=== PATIENT | female | born 1985 | race Caucasian/White ===

== ENCOUNTER → 2018-08-30 | Outpatient (CLI) | payer OTHER | END | disposition home or self-care (01) | LOC: LAB EV 17:05 → LAB SHORT 17:05 | DX: R31.9 Hematuria, unspecified (principal) | CPT/HCPCS: 87086 ==

== ENCOUNTER 2018-11-11 14:06 | Day surgery (SDC) | payer OTHER ==
[~2018-11-11] VITALS: Ht 170.2 cm; Wt 65.4 kg
[2018-11-11] MEDS ORDERED: LAMO100 PO (14:42)
[2018-11-11] MEDS ORDERED: Norco 5-325 Ta1 EACH PO (14:42)
--- NOTE | 2018-11-11 17:12 | NUR ---
11/11/18 171 Mouna Cole S ABLE TO FEEL TOUCH TO ALL TOES ON LEFT FOOT BUT BIG TOE NUMB.
--- NOTE | 2018-11-11 17:50 | NUR ---
11/11/18 1750 Mouna Cole PT. DRINKING WATER & ATE SOME CRACKERS TO TAKE A PAIN PILL. AT SIDE. CALL LIGHT WITHIN REACH.
== END 2018-11-11 18:28 | disposition home or self-care (01) ==
LOC: ORSCSDS 14:06
PROVIDERS: Podiatrist Foot & Ankle Surgery
PROC: 0QSK04Z Reposition Left Fibula with Internal Fixation Device, Open Approach (ICD-10-PCS; principal; 2018-11-11 15:30)
PROC: 0QSH04Z Reposition Left Tibia with Internal Fixation Device, Open Approach (ICD-10-PCS; principal; 2018-11-11 15:30)
DX: S82.842A Displaced bimalleolar fracture of left lower leg, initial encounter for closed fracture (principal); F17.210 Nicotine dependence, cigarettes, uncomplicated
CPT/HCPCS: C1713; J1100; J2250; J2405; J2704; J3010; J7120

== ENCOUNTER → 2019-01-07 | Outpatient (CLI) | payer OTHER ==
[~2019-01-07] MED LIST: LAMO100 PO; Norco 5-325 Ta1 EACH PO
[2019-01-09 15:07] LABS: HPV 16 Negative (Negative); HPV 18 Negative (Negative); HPV OTHER HR TYPES Negative (Negative)
== END | disposition home or self-care (01) ==
LOC: LAB 19:07 → LAB SHORT 19:07
PROVIDERS: Physician Assistant
DX: Z01.419 Encounter for gynecological examination (general) (routine) without abnormal findings (principal)
CPT/HCPCS: 87624; G0145

== ENCOUNTER 2019-11-19 22:12 | Inpatient (IN) | payer OTHER ==
[~2019-11-19] VITALS: Ht 160 cm; Wt 62.9 kg
[2019-11-19 22:30] LABS: PCO2 Arterial 30.3 mmHg (35-45); PO2 Arterial >500 mmHg (80-100); pH Blood Arterial 7.48 (7.35-7.45)
[2019-11-19 22:38] LABS: BASOPHILS ABSOLUTE AUTO 0.09 K/mm3 (0.00-0.23); BASOPHILS PERCENT AUTO 2 % (0-2); EOSINOPHILS ABSOLUTE AUTO 0.04 K/mm3 (0.00-0.68); EOSINOPHILS PERCENT AUTO 1 % (0-6); Hematocrit 39.5 % (33.0-51.0); Hemoglobin 13.9 g/dL (11.5-16.0); IMMATURE GRAN ABSOLUTE AUTO 0.01 K/mm3 (0.00-0.10); IMMATURE GRAN PERCENT AUTO 0 % (0-1); LYMPHOCYTES ABSOLUTE AUTO 1.48 K/mm3 (0.84-5.20); LYMPHOCYTES PERCENT AUTO 26 % (21-46); MONOCYTES ABSOLUTE AUTO 0.56 K/mm3 (0.16-1.47); MONOCYTES PERCENT AUTO 10 % (4-13); Mean Corpuscular HGB 35.2 pg (26.0-34.0); Mean Corpuscular HGB Conc 35.2 g/dL (31.5-36.5); Mean Corpuscular Volume 100 fL (80-100); Mean Platelet Volume 10.8 fL (9.1-12.4); NEUTROPHILS ABSOLUTE AUTO 3.44 K/mm3 (1.96-9.15); NEUTROPHILS PERCENT AUTO 61 % (41-73); Platelet Count 198 K/mm3 (150-400); RDW Coefficient Variation 12.1 % (11.7-14.2); RDW Standard Deviation 45.4 fL (35.1-46.3); Red Blood Cell Count 3.95 M/mm3 (3.80-5.20); White Blood Cell Count 5.62 K/mm3 (4.00-11.30)
[2019-11-19 23:08] LABS: Ethanol (Alcohol), Blood, Med 240 mg/dL; Salicylate 3.5 mg/dL (2.8-20.0)
[2019-11-19 23:09] LABS: Acetaminophen, Random <2.0 ug/mL (10.0-30.0)
[2019-11-19 23:11] LABS: Alanine Aminotransfer (ALT/SGP 78 U/L (12-78); Albumin, Blood 4.3 g/dL (3.4-5.0); Albumin/Globulin Ratio 1.3 (0.8-1.8); Alk Phos 65 U/L (50-136); Anion Gap 12 mmol/L (6-16); Aspartate Aminotrans (AST/SGOT 51 U/L (12-37); Bilirubin, Total 0.3 mg/dL (0.1-1.0); Blood Urea Nitrogen 12 mg/dL (8-24); Bun/Creatinine Ratio 12.2 (12.0-20.0); CO2, Blood 22 mmol/L (21-32); Calcium, Blood 8.5 mg/dL (8.5-10.1); Chloride, Blood 105 mmol/L (98-108); Creatinine, Blood 0.99 mg/dL (0.40-1.00); Globulin, Blood 3.4 g/dL (2.2-4.0); Glomerular Filtration Rate >60 (60-); Glucose, Blood 106 mg/dL (70-99); Potassium, Blood 3.4 mmol/L (3.5-5.5); Sodium, Blood 139 mmol/L (136-145); Total Protein, Blood 7.7 g/dL (6.4-8.2); Troponin I <0.015 ng/mL (0.000-0.040)
[2019-11-19 23:55] LABS: Source, Urine Catheter
[2019-11-19 23:58] LABS: Appearance, Urine Clear (Clear); Bilirubin, Urine Neg (Neg); Blood, Urine 1+ (Neg); Color, Urine Yellow (P-Yellow); Glucose Qualitative, Urine Neg (Neg); Ketones, Urine 1+ (Neg); Leukocyte Esterase, Urine Neg (Neg); Nitrite, Urine Neg (Neg); Protein, Urine 2+ (Neg); Specific Gravity, Urine 1.025 (1.003-1.022); Urobilinogen, Urine NORM (Normal)
--- NOTE | 2019-11-20 | NUR ---
PT UP TO ICU 9 FROM ED VIA M[facility] D/T OD ON LAMICTAL. PT INTUBATED AND SEDATED. LUNG SOUNDS CLEAR. VSS. VENT SETTINGS ARE 14/400/5/30%. SPO2 >90%. 2 PIVS IN RFA AND LAC. LEVIN IN PLACE DRAINING SMALL AMTS OF DARK YELLOW URINE. OG TUBE IN PLACE. PROPOFOL INF AT 35MCG. POISON CONTROL NOTIFIED. RECOMMENDED TO WATCH FOR PROLONGED Q-T AND SEROTONIN SYNDROME. WILL CONTINUE TO MONITOR
[2019-11-20 00:06] LABS: Bacteria Not Seen /hpf; Red Blood Cells, Urine 0-2 /hpf (0-2); Squamous Epithelial Cells Not Seen /hpf (Few); White Blood Cells, Urine Not Seen /hpf (0-5)
[2019-11-20 00:17] LABS: U Amphetamine Screen Not Detected; U Barbituate Screen Not Detected; U Benzodiazapine Screen Not Detected; U Buprenorphine Screen Not Detected; U Cannabinoids Screen Not Detected; U Cocaine Screen Not Detected; U Methadone Screen Not Detected; U Methamphetamine Screen Not Detected; U Opiates Screen Not Detected; U Oxycodone Screen Not Detected; U Phencyclidine Screen Not Detected; U Propoxyphene Screen Not Detected
--- NOTE | 2019-11-20 00:30 | NUR ---
DURING ORAL CARE PT BEGAN GAGGING AND PULLING/FIGHTING RESTRAINTS, SITTING UP IN BED. PRN ATIVAN GIVEN WITH GOOD EFFECT. PT CURRENTLY SLEEPING AND IS CALM. WILL CONTINUE TO MONITOR
[2019-11-20 02:17] LABS: BASOPHILS ABSOLUTE AUTO 0.06 K/mm3 (0.00-0.23); BASOPHILS PERCENT AUTO 1 % (0-2); EOSINOPHILS ABSOLUTE AUTO 0.02 K/mm3 (0.00-0.68); EOSINOPHILS PERCENT AUTO 0 % (0-6); Hematocrit 38.7 % (33.0-51.0); IMMATURE GRAN ABSOLUTE AUTO 0.01 K/mm3 (0.00-0.10); IMMATURE GRAN PERCENT AUTO 0 % (0-1); LYMPHOCYTES ABSOLUTE AUTO 1.06 K/mm3 (0.84-5.20); LYMPHOCYTES PERCENT AUTO 16 % (21-46); MONOCYTES PERCENT AUTO 10 % (4-13); Mean Corpuscular HGB 34.6 pg (26.0-34.0); Mean Corpuscular HGB Conc 33.6 g/dL (31.5-36.5); Mean Platelet Volume 11.1 fL (9.1-12.4); NEUTROPHILS ABSOLUTE AUTO 4.95 K/mm3 (1.96-9.15); NEUTROPHILS PERCENT AUTO 73 % (41-73); Platelet Count 165 K/mm3 (150-400); RDW Coefficient Variation 12.4 % (11.7-14.2); RDW Standard Deviation 47.7 fL (35.1-46.3); Red Blood Cell Count 3.76 M/mm3 (3.80-5.20)
[2019-11-20 02:21] LABS: Mean Corpuscular Volume 103 fL (80-100)
[2019-11-20 02:35] LABS: Alanine Aminotransfer (ALT/SGP 71 U/L (12-78); Albumin, Blood 3.9 g/dL (3.4-5.0); Albumin/Globulin Ratio 1.2 (0.8-1.8); Alk Phos 58 U/L (50-136); Anion Gap 11 mmol/L (6-16); Aspartate Aminotrans (AST/SGOT 51 U/L (12-37); Bilirubin, Direct 0.1 mg/dL (0.0-0.3); Bilirubin, Indirect 0.3 mg/dL (0.1-0.7); Bilirubin, Total 0.4 mg/dL (0.1-1.0); Blood Urea Nitrogen 12 mg/dL (8-24); Bun/Creatinine Ratio 14.2 (12.0-20.0); CO2, Blood 22 mmol/L (21-32); Chloride, Blood 108 mmol/L (98-108); Creatinine, Blood 0.84 mg/dL (0.40-1.00); Globulin, Blood 3.3 g/dL (2.2-4.0); Glomerular Filtration Rate >60 (60-); Glucose, Blood 102 mg/dL (70-99); Potassium, Blood 3.5 mmol/L (3.5-5.5); Salicylate 2.4 mg/dL (2.8-20.0); Sodium, Blood 141 mmol/L (136-145); Total Protein, Blood 7.2 g/dL (6.4-8.2)
[2019-11-20 05:40] LABS: PCO2 Arterial 41.3 mmHg (35-45); PO2 Arterial 132 mmHg (80-100); pH Blood Arterial 7.39 (7.35-7.45)
--- NOTE | 2019-11-20 06:14 | NUR ---
NO ACUTE CHANGES T/O SHIFT. PT OCCASIONALLY WAKING UP. FOLLOWING COMMANDS. IS CALM AND COOPERATIVE. ASKED IF SHE WAS COMFORTABLE AND SHE NODDED HER HEAD YES. VERY LITTLE URINE OUTPUT DURING THE NIGHT. VENT SETTINGS 14/400/5/30%. SPO2 >90%. PROPOFOL DOWN TO 35MCG. WILL PASS REPORT TO ONCOMING SHIFT
--- NOTE | 2019-11-20 07:30 | NUR ---
ASSUMED CARE: PT RESTING QUIETLY IN BED AT THIS TIME. PROPOFOL AT 35 MCG/KG/MIN. VENT SETTINGS AC 14/400/5/30%. NS RUNNING WELL. BILATERAL WRIST RESTRAINS. LEVIN CATHETER IN PLACE WITH CLEAR YELLOW URINE. NETWORK DESIGN ARCHITECT REPORTS SMALL AMOUNTS. NO ACUTE NEEDS OR CONCERNS AT THIS TIME.
--- NOTE | 2019-11-20 09:10 | NUR ---
DR LEARY CAME IN TO SEE PT AND REVIEWED CHART. ORDERS TO EXTUBATE. DR INSTRUCTED TO GIVE 2 MG ATIVAN PRIOR TO EXTUBATION TO HELP PT REMAIN CALM. EXTUBATION COMPLETE AT 0835. PT DROWSY BUT EASILY ROUSEABLE. ANSWERS QUESTIONS APPROPRIATELY. WHEN ASKED IF SHE HAD THOUGHTS OF HARMING HERSELF SHE DENIED. SHE STATES SHE IS IN THE HOSPITAL BECAUSE SHE TOOK PILLS. SHE STATES SHE WAS NOT TRYING TO KILL HERSELF WHEN SHE TOOK THE PILLS. WHEN ASKED WHY SHE TOOK THEM SHE STATES SHE WAS TRYING TO GET RID OF THEM. FATHER NOEMI HAS BEEN GIVEN UPDATE. ALLOWING PT TO WAKE FURTHER AND WILL CALL DR MARRERO FOR FURTHER ORDERS.
--- NOTE | 2019-11-20 10:08 | NUR ---
PT WAKING EASIER. STARTLES WHEN WAKES AND AGITATED UNTIL SHE REALIZES WHERE SHE IS. SHE STATES SHE IS IN THE HOSPITAL AND SHE IS HERE BECAUSE SHE TOOK TOO MANY PILLS BUT NOW STATES SHE DOES NOT KNOW WHY SHE TOOK THEM. PAGE OUT TO DR MARRERO TO UPDATE ON PT.
--- NOTE | 2019-11-20 10:24 | NUR ---
SPOKE WITH DR MARRERO WHO AGREED TO CONSULT DR BLACK. CONSULT SCANNED TO ED AND CALLED THEM TO BE AWARE THAT CONSULT IS COMING. RESTRAINTS STILL IN PLACE DUE TO PT ATTEMPTING TO PULL OUT LEVIN AND TRIED TO GET OUT OF BED MULTIPLE TIMES.
--- NOTE | 2019-11-20 11:59 | NUR ---
PT'S PUPILS REMAIN UNCHANGED, BOWEL TONES HYPOACTIVE, URINE OUTPUT IMPROVED SINCE AM. BEADED SWEAT TO FOREHEAD NOTED. CONFUSION, STARTLES AWAKE, ATTMEPTS TO GET OUT OF BED WHEN ROUSED. STATES SHE KNOWS SHE'S IN [facility], THAT SHE "TOOK TOO MANY PILLS," BUT STATES SHE DOES NOT KNOW WHY SHE TOOK THEM.
--- NOTE | 2019-11-20 12:15 | NUR ---
DR MARRERO CAME TO SEE PT. AWARE OF SYMPTOMS PT IS HAVING AT THIS TIME INCLUDING CONFUSION, AGITATION, AND SWEATING. ALSO AWARE THAT PT HAD ELEVATED BLOOD ALCOHOL LEVEL UPON ARRIVAL. AWAITING DR BLACK CONSULT. PT REMAINS DROWSY BUT EASILY ROUSABLE BUT AGITATED, CONTINUES TO TRY TO SIT UP IN BED AND SWINGS LEGS AROUND.
--- NOTE | 2019-11-20 18:49 | NUR ---
SHIFT SUMMARY: PT REMAINS DROWSY BUT EASILY ROUSABLE. WILL LIFT TORSO AND ATTEMPT TO GET OUT OF BED OCCASIONALLY. BILATERAL WRIST RESTRAINTS IN PLACE. AWAITING DR BLACK CONSULT TO DETERMINE DISCHARGE RECOMMENDATIONS. NO FURTHER ELEVATED TEMPS NOTED BUT SWEATING SEEN. PT REPOSITIONS SELF FREQUENTLY. NO FURTHER NEEDS OR CONCERNS AT THIS TIME.
--- NOTE | 2019-11-20 20:00 | NUR ---
ASSUMPTION OF CARE: PT EXTUBATED DURING DAYSHIFT. PROPOFOL IS OFF BUT PT REMAINS DROWSY. WILL WAKE TO VERBAL STIMULI. WHEN PT OPENS HER EYES THERE IS SOME NYSTAGMUS. IN SR, VSS. LUNG SOUNDS ARE CLEAR, SPO2 >90% ON RA. LEVIN IN REMAINS IN PLACE DRAINING MOD AMT OF DARKISH YELLOW URINE. SKIN IS C/D/I AND PT IS ABLE TO REPOSITION SELF FOR COMFORT. [address] NS INFUSING AT 100MLS/HR.
[2019-11-21 03:47] LABS: BASOPHILS ABSOLUTE AUTO 0.05 K/mm3 (0.00-0.23); BASOPHILS PERCENT AUTO 0 % (0-2); EOSINOPHILS ABSOLUTE AUTO 0.04 K/mm3 (0.00-0.68); EOSINOPHILS PERCENT AUTO 0 % (0-6); Hematocrit 37.5 % (33.0-51.0); Hemoglobin 12.4 g/dL (11.5-16.0); IMMATURE GRAN ABSOLUTE AUTO 0.04 K/mm3 (0.00-0.10); IMMATURE GRAN PERCENT AUTO 0 % (0-1); LYMPHOCYTES ABSOLUTE AUTO 1.11 K/mm3 (0.84-5.20); LYMPHOCYTES PERCENT AUTO 10 % (21-46); MONOCYTES ABSOLUTE AUTO 0.87 K/mm3 (0.16-1.47); MONOCYTES PERCENT AUTO 8 % (4-13); Mean Corpuscular HGB 34.8 pg (26.0-34.0); Mean Corpuscular HGB Conc 33.1 g/dL (31.5-36.5); Mean Corpuscular Volume 105 fL (80-100); Mean Platelet Volume 11.7 fL (9.1-12.4); NEUTROPHILS ABSOLUTE AUTO 9.22 K/mm3 (1.96-9.15); NEUTROPHILS PERCENT AUTO 81 % (41-73); Platelet Count 118 K/mm3 (150-400); RDW Coefficient Variation 12.4 % (11.7-14.2); RDW Standard Deviation 48.7 fL (35.1-46.3); Red Blood Cell Count 3.56 M/mm3 (3.80-5.20); White Blood Cell Count 11.33 K/mm3 (4.00-11.30)
[2019-11-21 04:07] LABS: Alanine Aminotransfer (ALT/SGP 58 U/L (12-78); Albumin, Blood 3.6 g/dL (3.4-5.0); Albumin/Globulin Ratio 1.1 (0.8-1.8); Alk Phos 60 U/L (50-136); Anion Gap 8 mmol/L (6-16); Aspartate Aminotrans (AST/SGOT 31 U/L (12-37); Bilirubin, Total 1.2 mg/dL (0.1-1.0); Blood Urea Nitrogen 11 mg/dL (8-24); Bun/Creatinine Ratio 12.7 (12.0-20.0); CO2, Blood 24 mmol/L (21-32); Calcium, Blood 8.5 mg/dL (8.5-10.1); Chloride, Blood 105 mmol/L (98-108); Creatinine, Blood 0.87 mg/dL (0.40-1.00); Globulin, Blood 3.2 g/dL (2.2-4.0); Glomerular Filtration Rate >60 (60-); Glucose, Blood 72 mg/dL (70-99); Phosphorus, Blood 2.7 mg/dL (2.5-4.9); Potassium, Blood 3.8 mmol/L (3.5-5.5); Sodium, Blood 137 mmol/L (136-145); Total Protein, Blood 6.8 g/dL (6.4-8.2)
--- NOTE | 2019-11-21 06:17 | NUR ---
SHIFT SUMMARY: NO ACUTE CHANGES T/O SHIFT. VS REMAIN STABLE. PT HAD A FEW MOMENTS OF AGITATION REGARDING THE LEVIN CATH SHE WOULD LIKE IT REMOVED. PT WAS ABLE TO TAKE PO LIQUIDS WITH ZERO DIFFICULTY. RESTRAINTS OFF AND PT WAS ABLE TO FOLLOW DIRECTIONS AND COMMANDS AND STAYED IN BED. USED CALL LIGHT APPROPRIATELY. WILL PASS REPORT TO ONCOMING SHIFT.
--- NOTE | 2019-11-21 08:13 | NUR ---
CIVIL RIGHTS READ TO PT. PT DECLINES ELECTRONICS RESEARCH ENGINEER. FORMS SIGNED AND PLACED ON CHART.
--- NOTE | 2019-11-21 09:00 | NUR ---
BEGINNING OF SHIFT Assumed care of pt at 0700. Report received from Cornelio CHACON. Pt sleeping but awakens with gentle verbal stimulus. Pt A&O x 3. Answers questions. Follow commands. Verbalizes needs. Denies suicidality. Pt not in suicide precautions at beginning of shift. This RN reviewed pt's plan of care with Dr Mcgovern and Dr Marcano. Both providers stated for patient to be in moderate-risk suicide precautions with camera monitoring. Providers also stated for pt to be on two MD hold until behavior health can assess patient. Civil rights read by charge nurseFe.
--- NOTE | 2019-11-21 09:30 | NUR ---
DR LEARY IN TO SEE PT States pt can be medical floor status with telemetry.
--- NOTE | 2019-11-21 09:31 | NUR ---
POISON CONTROL CALLED FOR UPDATE. NO RECOMMENDATIONS AT THIS TIME. WILL CALL BACK THIS AFTERNOON TO SEE IF PT HAS BEEN DISCHARGED.
--- NOTE | 2019-11-21 11:00 | NUR ---
BEHAVIORAL HEALTH CONSULT Pt spoke to Smiley Valles. Per Smiley Valles, pt is okay to discharge home from her standpoint. Plan to update Dr Marcano.
--- NOTE | 2019-11-21 12:00 | NUR ---
AGITATION Pt highly agitated after talking to Smiley Valles. Pt agreeable to receiving ativan. Ativan helped pt to calm down.
--- NOTE | 2019-11-21 12:00 | NUR ---
DR MARRERO IN TO SEE PATIENT Provider states that pt is okay will be discharging home today. [address] MD hold dropped by Dr Corrales.
--- NOTE | 2019-11-21 13:00 | NUR ---
SAFETY PLAN Completed by care providerMeera. Placed in pt's chart. Pt has copy.
--- NOTE | 2019-11-21 15:22 | NUR ---
DISCHARGE Pt discharged from unit at 1420. Pt walked to entrance accompanied by this RN. Pt had own medications in posession. This RN and pt met family member outside of hospital. Family member aware that pt has medication in her posession. With permission from pt, this RN updated pt's father- Ken, and mother- Lisa. Lisa was initially uncomfortable with pt being discharged today. Lisa educated on discharge process and plans for pt to follow up with outpatient. Pt's mother verbalized understanding of discharge and was agreeable at end of conversation.
== END 2019-11-21 14:20 | disposition home or self-care (01) | DRG 917 ==
LOC: ER 22:12 → ICUW 22:13 → ER 23:12 → ICUW 23:19
PROVIDERS: Emergency Medicine; Internal Medicine Critical Care Medicine; ADMIT Internal Medicine
PROC: 5A1935Z Respiratory Ventilation, Less than 24 Consecutive Hours (ICD-10-PCS; principal; 2019-11-19)
PROC: 0BH17EZ Insertion of Endotracheal Airway into Trachea, Via Natural or Artificial Opening (ICD-10-PCS; 2019-11-19)
DX: T40.4X2A Poisoning by other synthetic narcotics, intentional self-harm, initial encounter (principal); J96.90 Respiratory failure, unspecified, unspecified whether with hypoxia or hypercapnia; F10.239 Alcohol dependence with withdrawal, unspecified; T43.212A Poisoning by selective serotonin and norepinephrine reuptake inhibitors, intentional self-harm, initial encounter; T42.6X2A Poisoning by other antiepileptic and sedative-hypnotic drugs, intentional self-harm, initial encounter; E87.6 Hypokalemia; F17.210 Nicotine dependence, cigarettes, uncomplicated; F39 Unspecified mood [affective] disorder; F10.229 Alcohol dependence with intoxication, unspecified; Z78.1 Physical restraint status; Z88.0 Allergy status to penicillin
CPT/HCPCS: 31500; 31720; 36415; 36600; 51702; 71045; 80053; 81001; 82248; 82803; 83735; 84100; 84484; 85025; 93005; 93010; 94002; 94003; 96361-59; 96374-59; 96375-59; 99285-25; G0480; J0330; J1650; J2060; J2250; J2405; J2704; J3010; J3411; J3480; J7030

== ENCOUNTER 2020-11-19 00:32 | Inpatient (IN) | payer OTHER ==
[~2020-11-19] VITALS: Ht 170.2 cm; Wt 63.9 kg
[2020-11-19 01:04] LABS: Hematocrit 35.8 % (33.0-51.0); Hemoglobin 12.3 g/dL (11.5-16.0); Mean Corpuscular HGB 33.5 pg (26.0-34.0); Mean Corpuscular HGB Conc 34.4 g/dL (31.5-36.5); Mean Corpuscular Volume 98 fL (80-100); Mean Platelet Volume 10.5 fL (9.1-12.4); Platelet Count 219 K/mm3 (150-400); RDW Coefficient Variation 14.2 % (11.7-14.2); RDW Standard Deviation 51.5 fL (35.1-46.3); Red Blood Cell Count 3.67 M/mm3 (3.80-5.20); White Blood Cell Count 11.42 K/mm3 (4.00-11.30)
[2020-11-19 01:23] LABS: BAND PERCENT MAN 13 % (0-8); BASOPHILS PERCENT MAN 0 % (0-2); EOSINOPHILS ABSOLUTE MAN 0.11 K/mm3 (0.00-0.68); EOSINOPHILS PERCENT MAN 1 % (0-6); LYMPHOCYTES ABSOLUTE MAN 0.68 K/mm3 (0.84-5.20); LYMPHOCYTES PERCENT MAN 6 % (21-46); MONOCYTES ABSOLUTE MAN 0.45 K/mm3 (0.16-1.47); MONOCYTES PERCENT MAN 4 % (4-13); NEUTROPHILS ABSOLUTE MAN 10.16 K/mm3 (1.96-9.15); SEG NEUTROPHILS PERCENT MAN 76 % (41-73); TOTAL CELLS COUNTED 100
[2020-11-19 01:24] LABS: Alanine Aminotransfer (ALT/SGP 51 U/L (12-78); Albumin, Blood 3.6 g/dL (3.4-5.0); Albumin/Globulin Ratio 1.1 (0.8-1.8); Alk Phos 61 U/L (50-136); Anion Gap 11 mmol/L (6-16); Aspartate Aminotrans (AST/SGOT 38 U/L (12-37); Bilirubin, Total 0.5 mg/dL (0.1-1.0); Blood Urea Nitrogen 23 mg/dL (8-24); Bun/Creatinine Ratio 26.9 (12.0-20.0); CO2, Blood 23 mmol/L (21-32); Calcium, Blood 8.7 mg/dL (8.5-10.1); Chloride, Blood 104 mmol/L (98-108); Creatinine, Blood 0.86 mg/dL (0.40-1.00); Globulin, Blood 3.3 g/dL (2.2-4.0); Glomerular Filtration Rate >60 (60-); Glucose, Blood 136 mg/dL (70-99); Potassium, Blood 3.6 mmol/L (3.5-5.5); Sodium, Blood 138 mmol/L (136-145); Total Protein, Blood 6.9 g/dL (6.4-8.2)
[2020-11-19] MEDS ORDERED: Amphetamine Sal30 MG PO (03:45)
[2020-11-19] MEDS ORDERED: IBUP800 PO (03:46)
[2020-11-19 04:39] LABS: SARS-Cov-2 (COVID-19) PCR, MMC NEGATIVE (NEGATIVE)
--- NOTE | 2020-11-19 05:40 | NUR ---
11/19/20 0540 Edu Fay EPI 0.15MG ADDED TO 30CC OF 0.5 BUPIVACAINE
--- NOTE | 2020-11-19 06:25 | NUR ---
RECOVERY: PT TRANSFERRED TO ICU 2 VIA ER GENA WITH RN AND MD AT BEDSIDE. PT SEDATE AND SLEEPING. LS CLEAR T/O WITH BIOX 100% ON 15L NRB. HEART SOUNDS S1 AND S2 AUSCULTATED WITH MONITOR SHOWING NSR WITH HR 87. SKIN PINK, WARM AND DRY. BONIFACIO RUQ WITH SEROSANG FLUID DRAINED. MIDLINE EMMA'S DRAIN ON AND WORKING. ABD SOFT, TENDER AND PT GUARDING. 18G IV L AC WITH LR TO SLOW GRAVITY. LEVIN DRAINING CLEAR YELLOW URINE. 0635: O2 REMOVED. PT RESPOSIVE, BUT DRIFTS BACK TO SLEEP. 0645: DR. AYALA CAME THROUGH TO CHECK ON PT AND WAS TOLD THAT PT WOULD GO TO [facility].
--- NOTE | 2020-11-19 09:08 | NUR ---
0755 ARRIVED TO ROOM, PT AWAKENS TO VERBAL STIMULI, RETURNS TO SLEEP MIDWAY THROUGH ANSWERING QUESTIONS. DIE ENGRAVER NOT INITIATED AT THIS TIME DUE TO PTS SLEEPINESS
--- NOTE | 2020-11-19 15:14 | NUR ---
1450 PT AWAKE, REPORTS ABD PAIN LEVEL 7-8. COLLECTIONS ASSISTANT INITIATED PER ORDERS AND PT INSTRUCTED IN USE OF COLLECTIONS ASSISTANT. PT RETURNS TO SLEEP AFTER COLLECTIONS ASSISTANT LOADING DOSE. PT OPENS EYES TO VERBAL STIMULI. DR AYALA HERE TO SEE PATIENT
--- NOTE | 2020-11-19 15:20 | NUR ---
DISCONTINUED CONTINUOUS RATE ON STERILIZER OPERATOR
--- NOTE | 2020-11-19 16:55 | NUR ---
summary PT SLEEPS WHEN UNDISTURBED, AWAKENS TO VERBAL STIMULI AND AT TIMES RETURNS TO SLEEP MID SENTENCE. ABD DRESSING WITH MIDLINE EMMA, 2" AREA SEROSANGUINOUS DRAINAGE ON LOWER EDGE EMMA DRESSING. PT TO SOMNOLENT AT THIS TIME TO COMPLETE IS TEACHING.
--- NOTE | 2020-11-19 17:39 | NUR ---
THIS NURSE TOOK OVER CARE AT THIS TIME. PATIENT IS CURRENTLY LAYING IN BED ASLEEP WITH EQUAL/EVEN RESP. CALL LIGHT IS WITHIN REACH.
[2020-11-20 04:29] LABS: Hematocrit 36.5 % (33.0-51.0); Hemoglobin 12.1 g/dL (11.5-16.0); Mean Corpuscular HGB 33.2 pg (26.0-34.0); Mean Corpuscular HGB Conc 33.2 g/dL (31.5-36.5); Mean Corpuscular Volume 100 fL (80-100); Mean Platelet Volume 11.3 fL (9.1-12.4); Platelet Count 162 K/mm3 (150-400); RDW Coefficient Variation 14.6 % (11.7-14.2); RDW Standard Deviation 54.4 fL (35.1-46.3); Red Blood Cell Count 3.64 M/mm3 (3.80-5.20); White Blood Cell Count 8.38 K/mm3 (4.00-11.30)
[2020-11-20 04:50] LABS: BAND PERCENT MAN 7 % (0-8); BASOPHILS PERCENT MAN 0 % (0-2); EOSINOPHILS PERCENT MAN 0 % (0-6); LYMPHOCYTES ABSOLUTE MAN 0.83 K/mm3 (0.84-5.20); LYMPHOCYTES PERCENT MAN 10 % (21-46); MONOCYTES PERCENT MAN 6 % (4-13); NEUTROPHILS ABSOLUTE MAN 7.03 K/mm3 (1.96-9.15); SEG NEUTROPHILS PERCENT MAN 77 % (41-73); TOTAL CELLS COUNTED 100
[2020-11-20 04:52] LABS: Anion Gap 4 mmol/L (6-16); Blood Urea Nitrogen 16 mg/dL (8-24); CO2, Blood 28 mmol/L (21-32); Calcium, Blood 8.8 mg/dL (8.5-10.1); Chloride, Blood 108 mmol/L (98-108); Creatinine, Blood 0.94 mg/dL (0.40-1.00); Glomerular Filtration Rate >60 (60-); Glucose, Blood 122 mg/dL (70-99); Potassium, Blood 3.9 mmol/L (3.5-5.5); Sodium, Blood 140 mmol/L (136-145)
--- NOTE | 2020-11-20 06:21 | NUR ---
SHIFT SUMMARY NO ACUTE CHANGES OVERNIGHT. PT AOX4. REPORTS PAIN, PAIN MANAGED WITH PIGS FEET CLEANER FENTANYL. MIDLINE EMMA INTACT/SUCTIONING WITH MED DRY DRAINAGE, REMAIN UNCHANGED OVERNIGHT. PT SLEPT T/O SHIFT. LEVIN CATH INTACT/ON FLOOR/GRAVITIY AND PATENT. BONIFACIO DRAIN DRAINING SS. IV ON L AC INFUSING WITH LR 100ML/HR. ABX ADMINISTERED. NG TUBE IN PLACED AND INTACT IN LIS. CALL LIGHT WITHIN REACH. WILL PROVIDE REPORT TO ONCOMING NURSE.
--- NOTE | 2020-11-20 07:15 | NUR ---
AWNING SPREADER Pump cleared at 289mcg; BONIFACIO DRAIN 50ML SS DRAINAGE
--- NOTE | 2020-11-20 09:03 | NUR ---
DROWSY, AWAKENS EASILY, A&OX4, DENIES ANY NAUSEA, STATES PAIN IS "OK" WITH STATE EDITOR, STATES "JUST LET ME SLEEP," IS GIVEN WITH INSTRUCTIONS, DEMONSTRATES PROPER USE, CONT. TO MONITOR FOR ANY CHANGES, OOB TO CHAIR AND AMBULATE TODAY.
--- NOTE | 2020-11-20 11:32 | NUR ---
PT STATES SHE DRINKS "2 DRINKS" OF RUM DAILY, CIWA MONITORING STARTED.
--- NOTE | 2020-11-20 17:36 | NUR ---
SUMMARY REPORTS PAIN HAS BEEN TOLERABLE WITH AMMONIA REFRIGERATION TECHNICIAN, OOB TO CHAIR TODAY AND BSC, TOLERATED FAIRLY WELL, STANDBY ASSIST FOR DUE TO PAIN, DENIES ANY NAUSEA, NGT INTACT, CONT. TO DRAIN GREENISH-BROWN DRAINAGE, TOLERATING SOME ICE CHIPS WELL, ABD EMMA DSG C/D/I, BONIFACIO W/ MORE SEROUS APPEARING DRAINAGE NOTED, VOIDING WITHOUT DIFFICULTY, NO ACUTE CHANGES THIS SHIFT.
--- NOTE | 2020-11-21 04:40 | NUR ---
NG DRAINING GREENISH BROWN FLUID. BONIFACIO DRAIN INTACT WITH SS DRAINAGE, BULB COMPRESSED. EMMA DRESSING CDI. PT PAINFUL WITH MOVEMENT. ONE PERSON ASSIST. PAIN IS TOLERABLE WITH FENTANYL BUSINESS SERVICES REPRESENTATIVE. NO NAUSEA, DIZZINESS, VOMITING. TOLERATES ICE CHIPS AND VOIDS WITHOUT DIFFICULTY. NO ACUTE CHANGES. LR @ 100/HR. CIWA SCALES BEING DONE.
--- NOTE | 2020-11-21 05:07 | NUR ---
POD 2 S/P EX LAPW/SONU PATCH. PT VSS T/O NIGHT. SEAL AND SX INTACT ON EMMA DRESSING, NO ACTIVE DRNG NOTED. BONIFACIO PUTTING OUT CLOUDY LIGHT SS DRNG. PAIN MGD W/SFDC CONSULTANT-DEMAND ONLY. NGT TO LIS, PUTTING OUT GREEN DRNG, BP HYPO, PT HAD NO N/V. PT UP TO BSC, IS VOIDING URINE W/O DIFFICULTY. PT ANXIOUS AND IRRITABLE AT TIMES; CIWA 6 THIS SHIFT. PT USING CALL LIGHT AT TIMES, DOES YELL OUT FOR ASSISTANCE.
--- NOTE | 2020-11-21 18:15 | NUR ---
SUMMARY REPORTS FEELING "BETTER" TODAY, OOB TO AMBULATE DOWN THE HALLS, TOLERATED WELL, OOB TO CHAIR AND TOOK A SHOWER, DENIES ANY NAUSEA, PT ANXIOUS FOR NGT TO BE REMOVED, POSSIBLY TOMORROW PER DR. JACINTO PENDING UGI RESULTS, STATES PAIN IS TOLERABLE WITH INCOME TAX ADJUSTER, NO ACUTE CHANGES THIS SHIFT.
--- NOTE | 2020-11-22 06:09 | NUR ---
POD 3 S/P EX LAP+SONU PATCH. PT VSS T/O NIGHT. SEAL AND SX INTACT ON EMMA DRESSING. BONIFACIO PUTTING OUT LIGHT SS DRNG, APPEARS LESS CLOUDY THIS AM. NGT PUT OUT APPX 150 ML GREEN DRNG. PT AND NO C/O N/V, REPORTS PASSING FLATUS. PAIN MGF W/SECURITY INSTALLATION SALES TECHNICIAN W/REP RELIEF. PT UP INDEP TO BSC, IS VOIDING URINE W/O DIFFICULTY. PT USING I/S AT BEDSIDE. IVF AND ABX CONT PER ORDERS.
--- NOTE | 2020-11-22 10:13 | NUR ---
PT TO DAVID AT 6740
--- NOTE | 2020-11-22 10:37 | NUR ---
PT BACK TO ROOM FROM IMAGING.
--- NOTE | 2020-11-22 11:25 | NUR ---
DR. JACINTO HERE TO SEE PT RECENTLY. KRISS'D NGT AND STEVE'D PT FOR CLEAR LIQUID DIET.
--- NOTE | 2020-11-22 16:14 | NUR ---
SHIFT SUMMARY PT IS A/O X4, SBA UP TO BATHROOM FOR CORDS/LINES. EMMA IN PLACE TO MIDLINE ABD WITH FOAM COMPRESSED, WNL. BONIFACIO DRAIN IN PLACE WITH ABOUT 80ML OUT THIS SHIFT. NGT WAS REMOVED THIS AM AND PT HAS BEEN TOLERATING CLEAR LIQUIDS W/O NAUSA. PAIN MANAGED WITH FENTANYL HOT DIPPER. PT STARTED ON PO PAIN MEDS THIS SHIFT, WEANING OFF HOT DIPPER. PT RESTING IN BED AT THIS TIME, CALL LIGHT IN REACH.
--- NOTE | 2020-11-23 04:28 | NUR ---
A/OX4. VSS ON RA. PAIN MANAGED PRIMARILY W/ NORCO, PT USING HORTICULTURE SUPERVISOR PUMP FOR BREAK THROUGH PAIN. EMMA ORANGE LIGHT ALARMING, LEAK FOUND NEAR OLD DRAINAGE SITE. DRESSING REINFORCED AND BRIEFLY EFFECTIVE. EMMA DRESSING REMOVED AND MEDIPORE DRESSING APPLIED. 20CC OF DRAINAGE FROM BONIFACIO DRAIN. DENIES SOB, CP, N/V. UP TO BSC INDEPENDENTLY. SLEEPING B/W CARE. USING CALL LIGHT TO MAKE NEEDS KNOWN.
[2020-11-23 05:12] LABS: Hematocrit 38.7 % (33.0-51.0); Hemoglobin 13.3 g/dL (11.5-16.0); Mean Corpuscular HGB Conc 34.4 g/dL (31.5-36.5); Mean Corpuscular Volume 96 fL (80-100); Platelet Count 237 K/mm3 (150-400); RDW Coefficient Variation 13.1 % (11.7-14.2); RDW Standard Deviation 46.7 fL (35.1-46.3); Red Blood Cell Count 4.03 M/mm3 (3.80-5.20); White Blood Cell Count 4.96 K/mm3 (4.00-11.30)
[2020-11-23 05:37] LABS: Anion Gap 3 mmol/L (6-16); Blood Urea Nitrogen 8 mg/dL (8-24); Bun/Creatinine Ratio 10.9 (12.0-20.0); CO2, Blood 32 mmol/L (21-32); Calcium, Blood 8.6 mg/dL (8.5-10.1); Chloride, Blood 103 mmol/L (98-108); Creatinine, Blood 0.73 mg/dL (0.40-1.00); Glomerular Filtration Rate >60 (60-); Glucose, Blood 108 mg/dL (70-99); Magnesium, Blood 1.9 mg/dL (1.6-2.4); Potassium, Blood 3.2 mmol/L (3.5-5.5); Sodium, Blood 138 mmol/L (136-145)
--- NOTE | 2020-11-23 11:05 | NUR ---
DRESSINGS ON ABD AND BONIFACIO DRAIN CHANGED AT ABOUT 1000 D/T SATURATION FROM SHOWER.
--- NOTE | 2020-11-23 18:01 | NUR ---
SHIFT ASSESSMENT PT AMBULATING WELL. SHOWER TODAY. CHANGED DRESSINGS OVER ABDOMINAL SITE AND BONIFACIO DRAIN DRESSING. DRESSINGS ARE C/D/I. PT WEANED FROM CLEAN OUT DRILLER TODAY TO ORAL MEDICATIONS FOR PAIN. PT VOIDING AND STOOLING WELL. VITALS HAVE BEEN STABLE. PLAN IS TO DISCHARGE AFTER BONIFACIO DRAIN DC'D BY PROVIDER. WILL REPORT TO ONCOMING RN.
[2020-11-23] MEDS ORDERED: HYDR1TAB94 PO (18:54)
[2020-11-23] MEDS ORDERED: PANT40 PO (18:56)
--- NOTE | 2020-11-23 19:09 | NUR ---
DISCHARGE PT A/O X4, TOLERATING PO INTAKE, VOIDING, PASSING STOOL. PROVIDER REMOVED BONIFACIO DRAIN AT 1845 AND CLEARED PT TO DISCHARGE HOME. DC INSTRUCTIONS REVIEWED WITH PT; REPORTS UNDERSTANDING. PERSONAL BELONGINGS AND HOME MEDS SENT HOME WITH PT. SCRIPTS AND EXTRA DRESSING SUPPLIES ALSO SENT WITH PT. PT REPORTS NO QUESTIONS AT THIS TIME. PT DC'D AT 1905, AMBULATED IND TO VEHICLE WITH FAMILY.
== END 2020-11-23 19:09 | disposition home or self-care (01) | DRG 326 ==
LOC: ER 00:32 → SURS 04:13 → ICUE 06:30 → SURS 06:31
PROVIDERS: Emergency Medicine; Surgery; ADMIT Surgery
PROC: 0DU707Z Supplement Stomach, Pylorus with Autologous Tissue Substitute, Open Approach (ICD-10-PCS; principal; 2020-11-19 07:00)
DX: K25.5 Chronic or unspecified gastric ulcer with perforation (principal); K65.0 Generalized (acute) peritonitis; R18.8 Other ascites; Z68.1 Body mass index [BMI] 19.9 or less, adult; F10.20 Alcohol dependence, uncomplicated; F17.210 Nicotine dependence, cigarettes, uncomplicated; Z20.822 Contact with and (suspected) exposure to COVID-19; Y90.1 Blood alcohol level of 20-39 mg/100 ml; T39.395A Adverse effect of other nonsteroidal anti-inflammatory drugs [NSAID], initial encounter; R63.0 Anorexia; Z98.890 Other specified postprocedural states; Z88.0 Allergy status to penicillin; Z98.51 Tubal ligation status; Z79.899 Other long term (current) drug therapy
CPT/HCPCS: 36415; 74176; 74240; 80048; 80053; 83690; 83735; 85025; 85027; 86677; 93005; 93010; 96365; 96367; 96375; 96376; 99285-25; A9270; C9113; G0480; J0171; J0744; J1100; J1170; J1630; J1650; J1956; J2405; J2704; J3010; J7030; J7120; U0004

== ENCOUNTER 2021-01-15 18:38 | Emergency (ER) | payer OTHER ==
[~2021-01-15] VITALS: Ht 170.2 cm; Wt 57.6 kg
[~2021-01-15 18:38] MED LIST changes: +Amphetamine Sal30 MG PO; +HYDR1TAB94 PO; +IBUP800 PO; +PANT40 PO
[2021-01-16 02:03] LABS: BASOPHILS ABSOLUTE AUTO 0.09 K/mm3 (0.00-0.23); BASOPHILS PERCENT AUTO 1 % (0-2); EOSINOPHILS ABSOLUTE AUTO 0.05 K/mm3 (0.00-0.68); EOSINOPHILS PERCENT AUTO 0 % (0-6); Hematocrit 40.2 % (33.0-51.0); Hemoglobin 14.1 g/dL (11.5-16.0); IMMATURE GRAN ABSOLUTE AUTO 0.03 K/mm3 (0.00-0.10); IMMATURE GRAN PERCENT AUTO 0 % (0-1); LYMPHOCYTES ABSOLUTE AUTO 2.64 K/mm3 (0.84-5.20); LYMPHOCYTES PERCENT AUTO 23 % (21-46); MONOCYTES ABSOLUTE AUTO 0.99 K/mm3 (0.16-1.47); MONOCYTES PERCENT AUTO 9 % (4-13); Mean Corpuscular HGB 33.2 pg (26.0-34.0); Mean Corpuscular HGB Conc 35.1 g/dL (31.5-36.5); Mean Corpuscular Volume 95 fL (80-100); Mean Platelet Volume 11.1 fL (9.1-12.4); NEUTROPHILS ABSOLUTE AUTO 7.84 K/mm3 (1.96-9.15); NEUTROPHILS PERCENT AUTO 67 % (41-73); Platelet Count 235 K/mm3 (150-400); RDW Coefficient Variation 13.2 % (11.7-14.2); Red Blood Cell Count 4.25 M/mm3 (3.80-5.20); White Blood Cell Count 11.64 K/mm3 (4.00-11.30)
[2021-01-16 02:15] LABS: Alanine Aminotransfer (ALT/SGP 34 U/L (12-78); Albumin, Blood 4.3 g/dL (3.4-5.0); Albumin/Globulin Ratio 1.2 (0.8-1.8); Alk Phos 70 U/L (50-136); Anion Gap 6 mmol/L (6-16); Aspartate Aminotrans (AST/SGOT 24 U/L (12-37); Bilirubin, Total 0.4 mg/dL (0.1-1.0); Blood Urea Nitrogen 13 mg/dL (8-24); Bun/Creatinine Ratio 14.5 (12.0-20.0); CO2, Blood 27 mmol/L (21-32); Calcium, Blood 9.2 mg/dL (8.5-10.1); Chloride, Blood 104 mmol/L (98-108); Globulin, Blood 3.6 g/dL (2.2-4.0); Glomerular Filtration Rate >60 (60-); Glucose, Blood 85 mg/dL (70-99); Potassium, Blood 3.7 mmol/L (3.5-5.5); Sodium, Blood 137 mmol/L (136-145); Total Protein, Blood 7.9 g/dL (6.4-8.2)
[2021-01-16] MEDS ORDERED: AMOX-CLAV 875-1 EAC1 PO (04:19)
[2021-01-16] MEDS ORDERED: HYDR1TAB94 PO (04:19)
[2021-01-19] MEDS ORDERED: HYDR1TAB94 PO (13:13)
== END 2021-01-16 05:27 | disposition home or self-care (01) ==
LOC: ER 18:38
PROVIDERS: Physician Assistant
DX: S92.101A Unspecified fracture of right talus, initial encounter for closed fracture (principal); F17.200 Nicotine dependence, unspecified, uncomplicated; W17.89XA Other fall from one level to another, initial encounter; Y93.39 Activity, other involving climbing, rappelling and jumping off
CPT/HCPCS: 28435; 36415; 73590; 73600; 73610; 73650; 73700; 80053; 85025; 96374; 96375; 96376; 99152; 99284-25; A9270; J0690; J2270; J2405; J2704; J7030

== ENCOUNTER 2021-02-02 11:39 | Day surgery (SDC) | payer OTHER ==
[~2021-02-02] VITALS: Ht 170.2 cm; Wt 58.1 kg
[~2021-02-02 11:39] MED LIST changes: +AMOX-CLAV 875-1 EAC1 PO
--- NOTE | 2021-02-02 12:52 | NUR ---
02/02/21 1252 ELY REGAN PT EXTREMELY TENSE AND TEARFUL DURING IV INSERTION. PT ALSO TENSE AND GRIMACING AND TEARFUL WHEN THIS RN WAS ATTEMPTING TO REMOVE HARD CAST. THIS RN UNABLE TO REMOVE HARD CAST IT WAS NOT TOLERABLE FOR PT. DR MAE AND LIBRARIAN SPECIALISTINES MANZANARES NOTIFIED.
--- NOTE | 2021-02-02 13:28 | NUR ---
02/02/21 1328 Sophie Figueroa BUPIVACAINE 0.5% 30 MLS MIXED W/ EPI 0.15 ML PER ORDER TO CONSTITUTE BUPIVACAINE 0.5% 1:200,000 FOR INJECTION AT OPSITE BY DR MAE.
== END 2021-02-02 15:24 | disposition home or self-care (01) ==
LOC: ORSCSDS 11:39
PROVIDERS: Podiatrist Foot & Ankle Surgery
PROC: 0QSL04Z Reposition Right Tarsal with Internal Fixation Device, Open Approach (ICD-10-PCS; principal; 2021-02-02 13:00)
DX: S92.111A Displaced fracture of neck of right talus, initial encounter for closed fracture (principal); F17.210 Nicotine dependence, cigarettes, uncomplicated
CPT/HCPCS: A9270; C1713; C1769; J0171; J1100; J2250; J2405; J2704; J3010; J7120

== ENCOUNTER → 2022-08-14 | Outpatient (CLI) | payer OTHER ==
[2022-08-14 14:42] LABS: BASOPHILS ABSOLUTE AUTO 0.05 K/mm3 (0.00-0.23); BASOPHILS PERCENT AUTO 1 % (0-2); EOSINOPHILS ABSOLUTE AUTO 0.11 K/mm3 (0.00-0.68); EOSINOPHILS PERCENT AUTO 1 % (0-6); Hematocrit 41.1 % (33.0-51.0); Hemoglobin 14.6 g/dL (11.5-16.0); IMMATURE GRAN ABSOLUTE AUTO 0.02 K/mm3 (0.00-0.10); IMMATURE GRAN PERCENT AUTO 0 % (0-1); LYMPHOCYTES ABSOLUTE AUTO 2.71 K/mm3 (0.84-5.20); LYMPHOCYTES PERCENT AUTO 33 % (21-46); MONOCYTES ABSOLUTE AUTO 0.72 K/mm3 (0.16-1.47); MONOCYTES PERCENT AUTO 9 % (4-13); Mean Corpuscular HGB 32.4 pg (26.0-34.0); Mean Corpuscular HGB Conc 35.5 g/dL (31.5-36.5); Mean Corpuscular Volume 91 fL (80-100); Mean Platelet Volume 10.9 fL (9.1-12.4); NEUTROPHILS ABSOLUTE AUTO 4.74 K/mm3 (1.96-9.15); NEUTROPHILS PERCENT AUTO 57 % (41-73); Platelet Count 222 K/mm3 (150-400); RDW Coefficient Variation 12.6 % (11.7-14.2); RDW Standard Deviation 42.3 fL (35.1-46.3); White Blood Cell Count 8.35 K/mm3 (4.00-11.30)
[2022-08-14 14:59] LABS: Albumin, Blood 3.7 g/dL (3.4-5.0); Albumin/Globulin Ratio 1.1 (0.8-1.8); Bilirubin, Total 0.2 mg/dL (0.1-1.0); Bun/Creatinine Ratio 10.9 (12.0-20.0); Calcium, Blood 9.1 mg/dL (8.5-10.1); Creatinine, Blood 0.92 mg/dL (0.40-1.00); Globulin, Blood 3.5 g/dL (2.2-4.0); Potassium, Blood 3.9 mmol/L (3.5-5.5); Total Protein, Blood 7.2 g/dL (6.4-8.2)
== END | disposition home or self-care (01) ==
LOC: LAB SHORT 14:35 → LAB 14:35
PROVIDERS: Physician Assistant Medical
DX: R10.84 Generalized abdominal pain (principal)
CPT/HCPCS: 80053; 83690; 85025

== ENCOUNTER → 2022-12-21 | Outpatient (CLI) | payer OTHER ==
[2022-12-22 11:05] LABS: Candida species (DNA Probe) Negative (NEGATIVE); G. vaginalis (DNA Probe) Positive (NEGATIVE); T. vaginalis (DNA Probe) Negative (NEGATIVE)
[2022-12-23 04:09] LABS: CHLAMYDIA TRACHOMATIS, NAA Negative (Negative)
[2022-12-27 15:11] LABS: HPV 16 Negative (Negative); HPV 18 Negative (Negative); HPV OTHER HR TYPES Negative (Negative)
== END ==
LOC: LAB 18:06 → LAB SHORT 18:06
PROVIDERS: Obstetrics & Gynecology
DX: Z01.419 Encounter for gynecological examination (general) (routine) without abnormal findings (principal); Z11.3 Encounter for screening for infections with a predominantly sexual mode of transmission; N89.8 Other specified noninflammatory disorders of vagina
CPT/HCPCS: 87480; 87491; 87510; 87591; 87624; 87660; G0145